=== PATIENT | female | born 1965 | race Caucasian/White ===

== ENCOUNTER → 2023-10-30 06:29 | Day surgery (SDC) | payer BC, SELFPAY | LOC: GI 06:29 | PROVIDERS: ATTENDING PHYSICIAN Internal Medicine | DX: Z12.11 Encounter for screening for malignant neoplasm of colon (principal); D12.5 Benign neoplasm of sigmoid colon; K57.30 Diverticulosis of large intestine without perforation or abscess without bleeding; K64.8 Other hemorrhoids | CPT/HCPCS: 45385; 88305 ==

== ENCOUNTER → 2024-02-19 06:41 | Day surgery (SDC) | payer BC, SELFPAY | LOC: GI 06:41 | PROVIDERS: ATTENDING PHYSICIAN Internal Medicine | DX: R12 Heartburn (principal); K22.89 Other specified disease of esophagus; K44.9 Diaphragmatic hernia without obstruction or gangrene; K31.7 Polyp of stomach and duodenum; K31.89 Other diseases of stomach and duodenum; Z13.810 Encounter for screening for upper gastrointestinal disorder | CPT/HCPCS: 43239; 88305; 88342 ==

== ENCOUNTER → 2024-05-23 11:00 | Outpatient (REF) | payer BC, SELFPAY | LOC: WDC 11:00 | PROVIDERS: ATTENDING PHYSICIAN Obstetrics & Gynecology Gynecology; FAMILY PHYSICIAN Nurse Practitioner Adult Health | DX: Z12.31 Encounter for screening mammogram for malignant neoplasm of breast (principal); Z01.419 Encounter for gynecological examination (general) (routine) without abnormal findings | CPT/HCPCS: 77063; 77067 ==

== ENCOUNTER → 2024-08-26 13:55 | Outpatient (REF) | payer BC, SELFPAY | LOC: HWRAD 13:55 | PROVIDERS: ATTENDING PHYSICIAN Family Medicine; FAMILY PHYSICIAN Nurse Practitioner Adult Health | DX: E04.1 Nontoxic single thyroid nodule (principal) | CPT/HCPCS: 76536 ==

== ENCOUNTER → 2024-09-09 09:21 | Outpatient (REF) | payer BC, SELFPAY ==
[2024-09-09 09:45] VITALS: BP 140/82; BP_SYST 86
== END ==
LOC: RADI 09:21
PROVIDERS: ATTENDING PHYSICIAN Family Medicine
DX: E04.2 Nontoxic multinodular goiter (principal)
CPT/HCPCS: 88173; 10005

== ENCOUNTER → 2024-10-02 07:34 | Outpatient (REF) | payer BC, SELFPAY | LOC: RCS 07:34 | PROVIDERS: ATTENDING PHYSICIAN Nurse Practitioner Adult Health | DX: R07.89 Other chest pain (principal) | CPT/HCPCS: 93017 ==

== ENCOUNTER → 2024-12-07 10:46 | Outpatient (REF) | payer BC, SELFPAY | LOC: RAD 10:46 | PROVIDERS: ATTENDING PHYSICIAN Nurse Practitioner Adult Health | DX: M85.80 Other specified disorders of bone density and structure, unspecified site (principal) | CPT/HCPCS: 77080 ==